=== PATIENT | female | born 1990 | race Caucasian/White ===

== ENCOUNTER 2018-10-16 07:32 | Emergency (ER) | payer BC, MEDICAID, OTHER ==
[~2018-10-16] VITALS: Ht 157.5 cm; Wt 105.0 kg
[~2018-10-16 07:32] MED LIST: PREN-1 PO
--- NOTE | 2018-10-16 08:02 | NUR ---
TO RM 21 FROM LOBBY. PT STATES CRAMPING AND LIGHT TINT OF VAGINAL BLEEDING STARTED THIS MORNING. PT STATES SHE HAD IVF RECENTLY WITH POSITIVE HCG SINCE THEN. PROVIDED GOWN AND BLANKET
[2018-10-16] MEDS ORDERED: PROG100C2 PV (08:04)
--- NOTE | 2018-10-16 08:15 | NUR ---
CLARIFICATION: PT HAD IUI. LAB AT BEDSIDE DRAWING BLOOD AND PT TO GIVE URINE SAMPLE
[2018-10-16 08:22] LABS: BASOPHILS # (AUTO) 0.02 x10^3/uL (0-0.1); BASOPHILS % (AUTO) 0 % (0-1); EOSINOPHILS # (AUTO) 0.12 x10^3/uL (0-0.4); EOSINOPHILS % (AUTO) 2 % (1-7); LYMPHOCYTES # (AUTO) 1.65 x10^3/uL (1-3.4); LYMPHOCYTES % (AUTO) 23 % (22-44); MD NO; MEAN CORPUSCULAR HEMOGLOBIN 32.2 pg (27.0-34.8); MEAN CORPUSCULAR HGB CONC 34.3 g/dL (32.4-35.8); MEAN CORPUSCULAR VOLUME 93.8 fL (80-100); MEAN PLATELET VOLUME 7.7 fL (7.4-10.4); MONOCYTES # (AUTO) 0.21 x10^3/uL (0.2-0.8); MONOCYTES % (AUTO) 3 % (2-9); NEUTROPHILS # (AUTO) 5.17 x10^3/uL (1.8-6.8); NEUTROPHILS % (AUTO) 72 % (42-75); PLATELET COUNT 299 x10^3/uL (130-400); RED BLOOD COUNT 4.42 x10^6/uL (3.82-5.3); RED CELL DISTRIBUTION WIDTH 12.8 % (9.6-15.2)
[2018-10-16 08:35] LABS: ALBUMIN 3.6 g/dL (3.4-5.0); ANION GAP 10 mmol/L (5-15); CALCIUM 8.9 mg/dL (8.5-10.1); CHLORIDE 108 mmol/L (98-107); CREATININE 0.92 mg/dL (0.55-1.02)
--- NOTE | 2018-10-16 08:57 | NUR ---
ULTRASOUND COMPLETED. PT STATES NO CRAMPING AT THIS TIME
[2018-10-16 08:58] VITALS: BP 143/81
[2018-10-16 08:58] LABS: MICROSCOPIC INDICATED
[2018-10-16 09:13] LABS: CULTURE INDICATED? NO
--- NOTE | 2018-10-16 10:03 | NUR ---
UPON ARRIVAL TO ROOM, PT CRYING. PROVIDED CANDLE PACK. AT BEDSIDE
== END 2018-10-16 10:06 | disposition home or self-care (01) ==
LOC: ED 08:07
DX: O03.4 Incomplete spontaneous abortion without complication (principal); E11.65 Type 2 diabetes mellitus with hyperglycemia
CPT/HCPCS: 36415; 76801; 80048; 81001; 82040; 84702; 85025; 86901; 99284

== ENCOUNTER 2020-01-04 00:40 | Emergency (ER) | payer OTHER ==
[~2020-01-04] VITALS: Ht 157.5 cm; Wt 106.7 kg
[~2020-01-04 00:40] MED LIST changes: +PROG100C10 PV
[2020-01-04 00:44] VITALS: BP 156/85
--- NOTE | 2020-01-04 00:54 | NUR ---
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
[2020-01-04] MEDS ORDERED: KETOROLAC 30 MG/1 ML ONE (01:14)
--- NOTE | 2020-01-04 01:18 | NUR ---
MEDICATED PER MAR.
[2020-01-04] MEDS ORDERED: KETOROLAC 30 MG/1 ML IM ONE (01:30)
== END 2020-01-04 01:48 | disposition home or self-care (01) ==
LOC: ED 00:45
DX: G56.02 Carpal tunnel syndrome, left upper limb (principal); R20.2 Paresthesia of skin
CPT/HCPCS: 96372; 99283; J1885

== ENCOUNTER 2020-01-04 10:54 | Emergency (ER) | payer OTHER ==
[~2020-01-04] VITALS: Ht 157.5 cm; Wt 104.3 kg
[2020-01-04 11:09] VITALS: BP 149/81
--- NOTE | 2020-01-04 11:17 | NUR ---
FIRST CONTACT WITH PT. PT C/O L HAND/ARM NUMBNESS AND TINGLING, HERE EARLY THIS AM FOR SAME "I GOT A SHOT AND WAS ABLE TO SLEEP BUT ITS A LITTLE WORSE NOW, THEY SAID IT WAS CARPAL TUNNEL" PT'S AOX4. RESPS EVEN AND UNLABORED. DENIES ANY OTHER SX. PA AT BEDSIDE TO EVALUATE AT THIS TIME. BP/SPO2 MONITORS IN PLACE. CALL LIGHT WITHIN REACH.
--- NOTE | 2020-01-04 11:43 | NUR ---
Patient given discharge instructions and they have confirmed that they understand the instructions. Patient ambulatory with steady gait.
== END 2020-01-04 11:43 | disposition home or self-care (01) ==
LOC: ED 11:28
DX: G56.02 Carpal tunnel syndrome, left upper limb (principal); E11.9 Type 2 diabetes mellitus without complications
CPT/HCPCS: 29125; 99283